=== PATIENT | male | born 1930 | race Caucasian/White ===

== ENCOUNTER 2018-02-03 10:53 | Emergency (ER) | payer MEDICARE ==
[~2018-02-03] VITALS: Ht 182.9 cm; Wt 102.5 kg
[2018-02-03 10:55] VITALS: BP 146/74
--- NOTE | 2018-02-03 10:55 | NUR ---
pt to rm 5 via jovany from [facility]
--- NOTE | 2018-02-03 11:00 | NUR ---
87[address] FROM [facility] WITH C/O COFFEE GROUND EMESIS SINCE 030 TODAY PER [facility] REPORT. COFFEE GROUND DRIED UP EMESIS NOTED TO PERIORAL AREA. PT DENIES ANY NAUSEA, ABD PAIN, CP, OR SOB. ABD IS SOFT AND NON TENDER. SKIN IS DRY/WARM/SLIGHTLY PALE. PT IS AOX4 TO PERSON, PLACE, SITUATION, AND TIME. RR ARE EVEN AND UNLABORED. PT'S HR=70's-80s. EDEMA +2 TO BL LOWER EXTREMITIES. NAD. VSS. PT TO CARDIAC, CP, PULSE, AND PULSE OX. AWAITING ER MD JACKSON. WILL CONTINUE TO MONITOR.
[2018-02-03] MEDS ORDERED: ALEN70TA1 PO (11:18)
[2018-02-03] MEDS ORDERED: ZYL300 PO (11:18)
[2018-02-03] MEDS ORDERED: CARV25TA PO (11:18)
[2018-02-03] MEDS ORDERED: LACT10SO1 PO (11:18)
[2018-02-03] MEDS ORDERED: MAGN400T7 PO (11:18)
[2018-02-03] MEDS ORDERED: FLUO10CA21 PO (11:18)
[2018-02-03] MEDS ORDERED: LISI-420 PO (11:18)
[2018-02-03] MEDS ORDERED: POTA10TE30 PO (11:18)
[2018-02-03] MEDS ORDERED: ASPI81CT89 PO (11:18)
[2018-02-03] MEDS ORDERED: DIGO0.122 PO (11:18)
[2018-02-03] MEDS ORDERED: TYL3 PO (11:18)
[2018-02-03] MEDS ORDERED: NACL 0.9% 500 ML IV SCH (12:44)
[2018-02-03] MEDS ORDERED: PANTOPRAZOLE 40 MG INJ VIAL IVP ONE (12:45)
[2018-02-03] MEDS ORDERED: ONDANSETRON 4 MG/2 ML VIAL IVP ONE (12:45)
--- NOTE | 2018-02-03 12:55 | NUR ---
xray by bedside
[2018-02-03 13:38] LABS: BASOPHILS % (AUTO) 0.3 % (0.0-2.0); HEMATOCRIT 40.9 % (36-52); HEMOGLOBIN 13.3 g/dL (12.0-18.0); LYMPHOCYTES # (AUTO) 1.1 K/uL (2.0-11.5); LYMPHOCYTES % (AUTO) 12.4 % (20.5-51.1); MEAN CORPUSCULAR HEMOGLOBIN 32 pg (27-31); MEAN CORPUSCULAR HGB CONC 33 g/dL (33-37); MEAN CORPUSCULAR VOLUME 99.5 fL (80-94); MONOCYTES # (AUTO) 0.5 K/uL (0.8-1.0); MONOCYTES % (AUTO) 5.2 % (1.7-9.3); NEUTROPHILS # (AUTO) 7.2 K/uL (1.8-7.7); NEUTROPHILS % (AUTO) 82.1 % (42.2-75.2); PLATELET COUNT (AUTO) 188 K/uL (140-450); RED BLOOD CELL COUNT(AUTO) 4.11 MIL/uL (4.20-6.10); WHITE BLOOD COUNT (AUTO) 8.8 K/uL (4.8-10.8)
[2018-02-03 14:06] LABS: PROTHROMBIN TIME 10.6 secs (10.8-13.4)
[2018-02-03 14:12] LABS: ALBUMIN 2.8 g/dL (3.4-5.0); ANION GAP 6.2 (8-16); ASPARTATE AMINOTRANSFERASE 16 U/L (15-37); CHLORIDE 107 mmol/L (98-107); GLUCOSE 141 mg/dL (74-106); POTASSIUM 4.2 mmol/L (3.5-5.1); SODIUM SERUM 143 mmol/L (136-145); TOTAL BILIRUBIN 0.4 mg/dL (0.0-1.0); UREA NITROGEN, BLOOD 19 mg/dL (7-18)
[2018-02-03 15:40] VITALS: BP 124/59
--- NOTE | 2018-02-03 15:41 | NUR ---
Patient discharged with v/s stable. Written and verbal after care instructions given and explained. Patient alert, oriented and verbalized understanding of instructions. Wheel Chair Assisted with to care home. All questions addressed prior to discharge. ID band removed. Patient advised to follow up with PMD. Rx of PROTONIX given. Patient educated on indication of medication including possible reaction and side effects. Opportunity to ask questions provided and answered.
== END 2018-02-03 15:41 | disposition home or self-care (01) ==
LOC: MED 10:53
DX: K92.2 Gastrointestinal hemorrhage, unspecified (principal); I10 Essential (primary) hypertension; E03.9 Hypothyroidism, unspecified; Z79.899 Other long term (current) drug therapy
CPT/HCPCS: 36415; 71045; 80053; 83880; 85025; 85610; 85730; 86886; 86900; 86901; 93005; 96361; 96374; 96375; 99285; C9113; J2405; J7030; Q0092